=== PATIENT | male | born 1950 | race African-American/Black ===

== ENCOUNTER 2017-04-25 17:07 | Emergency (ER) | payer SELFPAY ==
[~2017-04-25] VITALS: Ht 175.3 cm; Wt 68.2 kg
[2017-04-25 17:08] VITALS: BP 130/81
[2017-04-25] MEDS ORDERED: OMEP10CASR PO (17:34)
[2017-04-25] MEDS ORDERED: IBUP-1114 PO (17:34)
[2017-04-25] MEDS ORDERED: [UNRECOGNIZED DRUG - OTHER] (17:34)
[2017-04-25] MEDS ORDERED: [UNRECOGNIZED DRUG - OTHER] PO (17:34)
[2017-04-25] MEDS ORDERED: NS 1,000 ML IV ONE (22:45)
--- NOTE | 2017-04-25 23:30 | REPUSA ---
CT of the abdomen and pelvis without contrast Clinical statement: Pain. Technique: Multiple axial CT images were obtained from the base of the lungs to the floor of the pelv is utilizing 5 mm axial slices without administration of contrast. Coronal and sagittal reconstructio ns were also obtained. No comparison is available. Findings: Chest: The visualized lung bases are clear. Abdomen: The kidneys are normal in size bilaterally. There is moderate left-sided hydronephrosis and hydroureter. No kidney stones identified. The right renal collecting system is unremarkable. The live r, spleen, pancreas, gallbladder and adrenal glands are unremarkable. The aorta demonstrates normal c aliber and contour. There is no abdominal lymphadenopathy or ascites. Pelvis: There is a small right inguinal hernia containing a single loop of small bowel. No evidence o f incarceration or obstruction is seen at this site. The appendix is normal. The bowel is otherwise u nremarkable, with no obstructive or inflammatory changes. The urinary bladder demonstrate mild area o f irregular wall thickening along the posterior base, predominately on the left side. No focal mass i s identified however. There is no pelvic lymphadenopathy or ascites. The other pelvic structures appe ar unremarkable. Bones: There are no suspicious osseous abnormalities seen. There is moderate degenerative disc diseas e at L4/L5 and L5/S1. Minimal disc osteophyte complexes and disc bulges are seen at these levels. Impression: 1. Moderate left-sided hydronephrosis and hydroureter. This extends to the level of the left ureterov esical junction. At this site, there is irregular urinary bladder wall thickening, extending along th e base. This could be inflammatory or infectious in nature. However, neoplasm cannot completely be ex cluded. Cystoscopy should be considered. 2. No evidence of nephrolithiasis. 3. No obstructive or inflammatory bowel changes. 4. Small right inguinal hernia containing a single herniating loop of small bowel. No evidence of inc arceration or obstruction. 5. Moderate degenerative disc disease at L4/L5 and L5/S1 with disc bulging noted.
[2017-04-25 23:41] LABS: BASO % 0.6 % (0.0-1.0); EOS # 0.1 10^3/uL (0.0-0.50); EOS % 1.4 % (0.0-3.0); IMMATURE GRANULOCYTE % 0.3 % (0-0); LYMPH % 42.3 % (24.0-44.0); MEAN CORPUSCULAR HEMOGLOBIN 32.8 pg (27.0-33.0); MEAN CORPUSCULAR HGB CONC 34.7 g/dl (32.0-36.5); MEAN CORPUSCULAR VOLUME 94.5 fl (80.0-96.0); MONO # 0.8 10^3/uL (0.0-0.8); MONO % 11.1 % (0.0-5.0); NEUTROPHILS # 3.2 10^3/uL (1.8-7.7); NEUTROPHILS % 44.3 % (36.0-66.0); PLATELET COUNT, AUTOMATED 280 10^3/uL (150-450); RED CELL DISTRIBUTION WIDTH 13.3 % (11.5-14.5); WHITE BLOOD COUNT 7.2 10^3/uL (4.0-10.0)
[2017-04-26 00:55] LABS: INR 0.99
[2017-04-26 01:03] LABS: ANION GAP 7 MEQ/L (8-16); BLOOD UREA NITROGEN 16 MG/DL (7-18); CALCIUM LEVEL 8.3 MG/DL (8.8-10.2); CARBON DIOXIDE LEVEL 27 MEQ/L (21-32); CHLORIDE LEVEL 109 MEQ/L (98-107); CREATININE FOR GFR 1.13 MG/DL (0.70-1.30); GLOMERULAR FILTRATION RATE > 60.0 (>49); GLUCOSE, FASTING 82 MG/DL (80-110); POTASSIUM SERUM 4.2 MEQ/L (3.5-5.1); SODIUM LEVEL 143 MEQ/L (136-145)
[2017-04-26] MEDS ORDERED: CIPR-249 PO (01:15)
[2017-04-26] MEDS ORDERED: CIPROFLOXACIN 500 MG TAB PO ONE (01:30)
== END 2017-04-26 01:41 | disposition home or self-care (01) ==
LOC: M ED 17:07
DX: N13.30 Unspecified hydronephrosis (principal); N40.0 Benign prostatic hyperplasia without lower urinary tract symptoms; Z79.899 Other long term (current) drug therapy

== ENCOUNTER → 2017-05-05 | Outpatient (REF) | payer SELFPAY ==
[~2017-05-05] MED LIST: CIPR-249 PO; IBUP-1114 PO; OMEP10CASR PO; [UNRECOGNIZED DRUG - OTHER]; [UNRECOGNIZED DRUG - OTHER] PO
== END ==
LOC: M SMT 17:46
PROVIDERS: ATTEND Nurse Practitioner Family
DX: R31.9 Hematuria, unspecified (principal)

== ENCOUNTER → 2017-06-04 | Outpatient (CLI) | payer OTHER | LOC: M LRY 14:14 | DX: Z01.818 Encounter for other preprocedural examination (principal) | CPT/HCPCS: 71046 ==

== ENCOUNTER → 2017-06-04 | Outpatient (REF) | payer OTHER ==
[2017-06-04 18:37] LABS: INR 1.05; PROTHROMBIN TIME 13.8 SECONDS (12.4-14.5)
[2017-06-04 18:38] LABS: PARTIAL THROMBOPLASTIN TIME 33.7 SECONDS (26.8-37.9)
[2017-06-04 18:43] LABS: ANION GAP 7 MEQ/L (8-16); BLOOD UREA NITROGEN 16 MG/DL (7-18); CALCIUM LEVEL 8.7 MG/DL (8.8-10.2); CARBON DIOXIDE LEVEL 31 MEQ/L (21-32); CHLORIDE LEVEL 104 MEQ/L (98-107); CREATININE FOR GFR 1.33 MG/DL (0.70-1.30); GLOMERULAR FILTRATION RATE > 60.0 (>49); GLUCOSE, FASTING 72 MG/DL (80-110); POTASSIUM SERUM 4.2 MEQ/L (3.5-5.1); PSA SCREENING 0.55 NG/ML (< 4.0); SODIUM LEVEL 142 MEQ/L (136-145)
[2017-06-04 19:13] LABS: HEMOGLOBIN 14.3 g/dl (14.0-18.0); MEAN CORPUSCULAR HEMOGLOBIN 31.6 pg (27.0-33.0); MEAN CORPUSCULAR HGB CONC 32.5 g/dl (32.0-36.5); MEAN CORPUSCULAR VOLUME 97.1 fl (80.0-96.0); PLATELET COUNT, AUTOMATED 322 10^3/uL (150-450); RED BLOOD COUNT 4.53 10^6/uL (4.30-6.10)
== END ==
LOC: M LABSMT 14:24
DX: Z01.818 Encounter for other preprocedural examination (principal); D49.4 Neoplasm of unspecified behavior of bladder; N39.0 Urinary tract infection, site not specified; Z12.5 Encounter for screening for malignant neoplasm of prostate
CPT/HCPCS: 84153

== ENCOUNTER → 2017-06-24 | Outpatient (CLI) | payer OTHER | LOC: M CARPUL 15:08 | DX: R06.02 Shortness of breath (principal); R94.2 Abnormal results of pulmonary function studies | CPT/HCPCS: 94060 ==

== ENCOUNTER 2017-06-30 06:21 | Day surgery (SDC) | payer OTHER ==
[2017-06-30] MEDS ORDERED: NEOSTIGMINE 10 MG/10 ML VIAL (J2710) (06:22)
[2017-06-30] MEDS: LR 1,000 ML IV (07:00)
[2017-06-30] MEDS ORDERED: MIDAZOLAM INJ 2 MG/2 ML VIAL (J2250) As Ordered (07:18)
[2017-06-30] MEDS ORDERED: fentaNYL 100 MCG/2 ML INJECTION (J3010) As Ordered ×4 (07:18→09:21)
[2017-06-30] MEDS ORDERED: ROCURONIUM BROMIDE 50 MG/5 ML VIAL As Ordered (07:18)
[2017-06-30] MEDS ORDERED: PROPOFOL 200 MG/20 ML VIAL As Ordered ×3 (07:18→14:44)
[2017-06-30] MEDS ORDERED: LIDOCAINE 2% INJ 100 MG/5 ML SDV (FOR ANES.) As Ordered (07:18)
[2017-06-30] MEDS: CONRAY-60 60% 50ML VIAL (Q9961) As Ordered (07:20)
[2017-06-30] MEDS ORDERED: HYDROmorphone HCL 2 MG/ML 1ML VIAL (J1170) As Ordered (08:06)
[2017-06-30] MEDS ORDERED: ESMOLOL INJ 100MG/10ML VIAL As Ordered (08:18)
[2017-06-30] MEDS ORDERED: LABETALOL HCL 100 MG/20 ML VIAL As Ordered ×2 (08:41→14:43)
[2017-06-30] MEDS ORDERED: ONDANSETRON 4MG/2ML VIAL (J2405) As Ordered (08:45)
[2017-06-30] MEDS ORDERED: GLYCOPYRROLATE INJ 0.2 MG/ML 2 ML VIAL As Ordered (08:45)
[2017-06-30] MEDS ORDERED: NEOSTIGMINE 10 MG/10 ML VIAL (J2710) As Ordered (08:45)
[2017-06-30] MEDS: fentaNYL 100 MCG/2 ML INJECTION (J3010) IV ×4 (09:27→09:49)
[2017-06-30] MEDS ORDERED: PERCOCET 5MG/325MG TAB PO ×2 (09:30→10:00)
[2017-06-30] MEDS: PERCOCET 5MG/325MG TAB PO (09:47)
[2017-06-30] MEDS: MORPHINE 10 MG/ML 1ML VIAL IV ×3 (09:59→10:40)
[2017-06-30] MEDS ORDERED: ONDANSETRON 4MG/2ML VIAL (J2405) IV (10:00)
[2017-06-30] MEDS ORDERED: LR 1,000 ML IV (10:00)
[2017-06-30] MEDS ORDERED: KETOROLAC 30 MG/ML VIAL (J1885) As Ordered (10:18)
[2017-06-30] MEDS: oxyBUTYnin 5 MG TAB PO (10:24)
[2017-06-30] MEDS ORDERED: MORPHINE 10 MG/ML 1ML VIAL IV ×2 (10:30→10:34)
[2017-06-30] MEDS: KETOROLAC 30 MG/ML VIAL (J1885) IV (10:44)
[2017-06-30] MEDS: MORPHINE 4 MG/ML 1ML VIAL IV (12:14)
== END 2017-06-30 13:25 | disposition home or self-care (01) ==
LOC: M SDC 06:21
DX: C67.9 Malignant neoplasm of bladder, unspecified (principal); R94.31 Abnormal electrocardiogram [ECG] [EKG]; M12.9 Arthropathy, unspecified; N40.0 Benign prostatic hyperplasia without lower urinary tract symptoms; Z79.899 Other long term (current) drug therapy
CPT/HCPCS: 52240

== ENCOUNTER 2017-07-14 00:48 | Emergency (ER) | payer OTHER | END 2017-07-14 01:05 | disposition left against medical advice (07) | LOC: M ED 00:48 | DX: Z53.29 Procedure and treatment not carried out because of patient's decision for other reasons (principal) ==

== ENCOUNTER → 2017-07-29 | Outpatient (REF) | payer OTHER | LOC: M SMT 13:12 | DX: R39.9 Unspecified symptoms and signs involving the genitourinary system (principal) | CPT/HCPCS: 87088 ==